=== PATIENT | male | born 1975 | race Hispanic/Latino ===

== ENCOUNTER 2019-01-10 20:07 | Emergency (ER) | payer BC ==
[2019-01-10] MEDS ORDERED: cloNIDine 0.2 MG TAB PO ONE (20:49)
[2019-01-10] MEDS ORDERED: LORazepam 1 MG TAB PO ONE (20:50)
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
[2019-01-10 21:07] LABS: Basophils # (Auto) 0.1 K/mm3 (0.0-0.1); Basophils % (Auto) 0.7 % (0.0-1.8); Eosinophils % (Auto) 0.4 % (0.0-4.3); Hematocrit 49.5 % (35.5-45.6); Hemoglobin 16.8 gm/dl (11.8-15.2); Lymphocytes # (Auto) 1.3 K/mm3 (1.2-5.4); Lymphocytes % (Auto) 18.3 % (13.4-35.0); Mean Corpuscular HGB Conc 34 % (32-34); Mean Corpuscular Volume 91 fl (84-94); Monocytes # (Auto) 0.5 K/mm3 (0.0-0.8); Monocytes % (Auto) 7.7 % (0.0-7.3); Platelet Count 157 K/mm3 (140-440); Red Blood Count 5.46 M/mm3 (3.65-5.03); Red Cell Distribution Width 12.8 % (13.2-15.2)
[2019-01-10 21:31] LABS: Alanine Aminotransferase 63 units/L (7-56); Albumin 4.1 g/dL (3.9-5); BUN/Creatinine Ratio 16; Bilirubin,Direct 0.2 mg/dL (0-0.2); Blood Urea Nitrogen 8 mg/dL (9-20); Calcium 8.2 mg/dL (8.4-10.2); Hemolysis Index 22
[2019-01-10] MEDS ORDERED: THIAMINE 100 MG, FOLIC ACID 1 MG, MULTIPLE VITAMIN INJ, ADULT 10 ML in SODIUM CHLORIDE ... IV ONE (21:45)
[2019-01-11] MEDS ORDERED: hydrALAZINE 20 MG/1 ML INJ ONE (00:31)
[2019-01-11] MEDS ORDERED: hydrALAZINE 20 MG/1 ML INJ IV ONE (00:32)
[2019-01-11 02:55] VITALS: BP 156/62
== END 2019-01-11 04:10 | disposition home or self-care (01) ==
LOC: ED 20:07
DX: F10.129 Alcohol abuse with intoxication, unspecified (principal); I10 Essential (primary) hypertension; E11.9 Type 2 diabetes mellitus without complications
CPT/HCPCS: 36415; 80048; 80076; 82962; 85025; 96365; 96366; 96375; 99283; J0360; J3411; J7030; 80320; G0480